=== PATIENT | female | born 1995 | race Caucasian/White ===

== ENCOUNTER → 2018-12-17 | Outpatient (CLI) | payer OTHER ==
--- NOTE | 2018-12-20 08:09 | USB ---
Reason for exam: clinical finding. History: Taking hormonal contraceptives for 4 years. Indicated problem(s): lump or thickening in the right breast. Physical Findings: Nurse Summary: 2cm firm lump right breast 7 o'clock (nurse TM). US Breast RT Right complete breast ultrasound includes all four quadrants, the retroareolar region and axilla. Finding demonstrates no cystic or solid lesion seen. Rounded area of dense breast tissue, stable to the patient x 7 years. Other areas of dense breast tissue are seen throughout. These results were verbally communicated with the patient and result sheet given to the patient on 12/17/18. ASSESSMENT: Benign, BI-RAD 2 RECOMMENDATION: Routine screening mammogram of both breasts at age 42. (or sooner if clinically indicated) Manage patient on a clinical basis. If clinical growth biopsy could be considered.
== END | disposition home or self-care (01) ==
LOC: RADUSWWP 14:44
PROVIDERS: ATTEND Obstetrics & Gynecology
DX: N63.10 Unspecified lump in the right breast, unspecified quadrant (principal)

== ENCOUNTER → 2020-01-17 | Outpatient (CLI) | payer OTHER ==
[2020-01-17 14:43] LABS: T4, Free (Free Thyroxine) 0.91 ng/dL (0.78-2.19)
--- NOTE | 2020-01-17 15:58 | US ---
EXAMINATION TYPE: US pelvic complete DATE OF EXAM: 01/17/2020 COMPARISON: CT 2009 CLINICAL HISTORY: N91.2 AMENORRHEA. Patient stated since menarche age 13 has had irregular menstrual cycles until placed on oral contraceptives; control was discontinued and September 2019 was l ast regular menstrual cycle. Patient stated has vaginal spotting now x 2 days. Patient stated is not . TECHNIQUE: Transabdominal (TA). Transabdominal sonographic images of the pelvis were acquired. Date of LMP: 01/16/2020 EXAM MEASUREMENTS: Uterus: 7.3 x 3.7 x 2.8 cm Endometrial Stripe: 0.6 cm Right Ovary: 3.4 x 2.7 x 2.1 cm Left Ovary: 3.2 x 3.87 x 2.1 cm 1. Uterus: Anteverted 2. Endometrium: appearance is wnl 3. Right Ovary: multiple small follicles 4. Left Ovary: multiple small follicles color flow is seen within bilateral ovary 5. Bilateral Adnexa: wnl 6. Posterior cul-de-sac: wnl Grayscale and color Doppler imaging performed, color flow noted to the left ovary, less color flow no rebeca to the right ovary IMPRESSION: Uterus size as described, transabdominal scanning only.
== END | disposition home or self-care (01) ==
LOC: RADUSWWP 13:28
PROVIDERS: ATTEND Obstetrics & Gynecology
DX: N91.2 Amenorrhea, unspecified (principal)
CPT/HCPCS: 36415; 76856; 84439; 84443

== ENCOUNTER → 2020-02-13 | Outpatient (CLI) | payer OTHER ==
[2020-02-13 11:03] LABS: DHEA Sulfate 190.6 ug/dL (26.0-430.0)
[2020-02-13 11:05] LABS: Insulin Level 15.3 mIU/mL (3.0-25.0)
[2020-02-13 12:07] LABS: Estradiol 45.7 pg/mL; Luteinizing Hormone 6.5 mIU/mL
[2020-02-13 12:08] LABS: Follicle Stimulating Hormone 8.5 mIU/mL
== END | disposition home or self-care (01) ==
LOC: LABWHC1 07:11
PROVIDERS: ATTEND Obstetrics & Gynecology
DX: N91.5 Oligomenorrhea, unspecified (principal)
CPT/HCPCS: 36415; 82627; 82670; 82947; 83001; 83002; 83525; 84402

== ENCOUNTER → 2022-11-14 | Outpatient (CLI) | payer OTHER ==
[2022-11-14 15:39] LABS: Basophils # (A) 0.02 X 10*3/uL (0.00-0.10); Basophils % (A) 0.4 %; Eosinophils # (A) 0.12 X 10*3/uL (0.04-0.35); Eosinophils % (A) 2.3 %; HCT 44.3 % (37.2-46.3); HGB 13.8 d/dL (12.0-15.0); Lymphocytes # (A) 1.79 X 10*3/uL (0.90-5.00); Lymphocytes % (A) 33.6 %; MCH 27.8 pg (27.0-32.0); MCHC 31.2 d/dL (32.0-37.0); MCV 89.3 FL (80.0-97.0); Mean Platelet Volume 10.1 FL (9.5-12.2); Monocytes # (A) 0.39 X 10*3/uL (0.20-1.00); Monocytes % (A) 7.3 %; NRBC Per 100 WBC 0 X 10*3/uL (0.00-0.01); Neutrophils # (A) 2.98 X 10*3/uL (1.80-7.70); Platelet Count 264 X 10*3/uL (140-440); RBC 4.96 X 10*6/uL (4.10-5.20); WBC 5.32 X 10*3/uL (4.50-10.00)
[2022-11-14 16:41] LABS: VLDL Calculation 10.82 mg/dL (5.00-40.00)
[2022-11-14 16:58] LABS: ALT 19 U/L (8-44); AST 16 U/L (13-35); Albumin 4.7 d/dL (3.8-4.9); Albumin/Globulin Ratio 2.35 Ratio (1.60-3.17); Alkaline Phosphatase 43 U/L (41-126); BUN/Creat Ratio 13.86 Ratio (12.00-20.00); Blood Urea Nitrogen 9.7 mg/dL (9.0-27.0); Calcium 9.5 mg/dL (8.7-10.3); Carbon Dioxide 23.7 mmol/L (21.6-31.8); Chloride 104 mmol/L (96-109); Chol/HDL Ratio 3.72 Ratio; Glucose 91 mg/dL (70-110); HCG,Quantitative Serum <3.0 mIU/mL (0.0-6.0); LDL Cholesterol,Calculated 128.9 mg/dL (0.0-131.0); Potassium 4.7 mmol/L (3.5-5.5); Sodium 140 mmol/L (135-145); Total Bilirubin 0.3 mg/dL (0.3-1.2); Total Protein 6.7 d/dL (6.2-8.2)
== END | disposition home or self-care (01) ==
LOC: LABWHC1 08:52
PROVIDERS: ATTEND Family Medicine
DX: E28.2 Polycystic ovarian syndrome (principal)
CPT/HCPCS: 36415; 80053; 80061; 82627; 83036; 84146; 84443; 84702; 85025

== ENCOUNTER 2024-07-03 14:55 | Inpatient (IN) | payer OTHER ==
[2024-07-03] MEDS ORDERED: CARBOPROST TROMETHAMINE 250 MCG/ML 1 ML AMP IM PRN (16:03)
[2024-07-03] MEDS ORDERED: TERBUTALINE 1 MG/ML VIAL SQ PRN (16:03)
[2024-07-03] MEDS ORDERED: METHYLERGONOVINE 0.2 MG/ML 1 ML AMP IM PRN (16:03)
[2024-07-03] MEDS ORDERED: LIDOCAINE 0.5% (PF) 5 MG/ML (50 ML SDV) SQ PRN (16:03)
[2024-07-03] MEDS ORDERED: OXYTOCIN 10 UNIT/ML 1 ML VIAL IM PRN (16:03)
[2024-07-03] MEDS ORDERED: TRANEXAMIC 1,000 MG/100ML-NACL 1,000 MG in EMPTY BAG 1 BAG IV PRN (16:03)
[2024-07-03] MEDS ORDERED: miSOPROStoL 200 MCG TAB RECTAL PRN (16:03)
[2024-07-03] MEDS ORDERED: miSOPROStoL 200 MCG TAB PO PRN (16:03)
[2024-07-03 16:38] LABS: Basophils % (A) 0 %; Eosinophils # (A) 0.1 k/uL (0-0.7); Eosinophils % (A) 1 %; HCT 36.2 % (34.0-46.0); HGB 11.3 gm/dL (11.4-16.0); Hypochromasia Slight; Lymphocytes # (A) 1.3 k/uL (1.0-4.8); Lymphocytes % (A) 18 %; MCH 27.3 pg (25.0-35.0); MCHC 31.3 g/dL (31.0-37.0); MCV 87.1 fL (80.0-100.0); Mean Platelet Volume 9.5; Monocytes # (A) 0.3 k/uL (0-1.0); Monocytes % (A) 4 %; Neutrophils # (A) 5.6 k/uL (1.3-7.7); Neutrophils % (A) 75 %; Platelet Count 221 k/uL (150-450); RBC 4.15 m/uL (3.80-5.40); WBC 7.5 k/uL (3.8-10.6)
[2024-07-03] MEDS: LACTATED RINGERS 1,000 ML IV SCH (17:00)
--- NOTE | 2024-07-03 20:18 | P.HPOB ---
History of Present Illness H&P Date: 07/03/24 Chief Complaint: 40 and 1 sevenths weeks, spontaneous rupture of membranes Patient is a 28-year-old 1 para 0 admitted at 40 and 3 sevenths weeks as established by 6-week ultrasound. She is admitted with documented spontaneous rupture of membranes for clear fluid. On labor and delivery, all signs are reassuring with a category 1 heart rate tracing. Contractions are irregular at this time. Her has been entirely uncomplicated and group B strep status is negative. Obstetrical history: 1 para 0 with current statistics listed in history of present illness. EDC of 06/30/2024 was established by 6-week ultrasound. Laboratory workup demonstrates a blood type of O+ with a negative antibody screen. Rubella status is immune. The remainder of the laboratory workup is within normal limits. 1 hour Glucola was initially elevated but followed by a normal 3-hour glucose tolerance test. Group B strep status is negative. Gynecologic history: Unremarkable with no history of any infections to include STDs. Review of Systems Review of systems is confined to history of present illness. Past Medical History Past Medical History: No Reported History History of Any Multi-Drug Resistant Organisms: None Reported Past Surgical History: Adenoidectomy, Ear Surgery, Tonsillectomy Additional Past Surgical History / Comment(s): lip surgery Past Anesthesia/Blood Transfusion Reactions: No Reported Reaction Past Psychological History: No Psychological Hx Reported Smoking Status: Never smoker Past Alcohol Use History: None Reported Past Drug Use History: None Reported - Past Family History Father Family Medical History: Diabetes Mellitus, Hypertension Medications and Allergies Home Medications Medication Instructions Recorded Confirmed Type Aspirin 81 mg PO DAILY 05/03/24 07/03/24 History Vit No.179/Iron/Folic 1 tablet PO DAILY 05/03/24 07/03/24 History [ Tablet] metFORMIN HCL 1,000 mg PO DAILY 05/03/24 07/03/24 History valACYclovir HCL [Valtrex] 500 mg PO DAILY 07/03/24 07/03/24 History Allergies Allergy/AdvReac Type Severity Reaction Status Date / Time No Known Allergies Allergy Verified 07/03/24 15:09 Exam Vital Signs Temp Pulse Resp BP Pulse Ox 07/03/24 15:31 98.7 F 113 H 18 136/90 98 07/03/24 15:08 98.7 F 113 H 18 136/90 98 07/03/24 15:00 98.7 F 113 H 18 136/90 98 Intake and Output 07/03/24 07/03/24 07/03/24 06:59 14:59 22:59 Other: Weight 90.718 kg In general, this is a well-developed, well-nourished white female in no acute distress. Her heart has a regular rhythm and rate without murmur. Her lungs are clear to auscultation bilaterally in all madrigal. Her abdomen is gravid, nondistended, has normal active bowel sounds, soft, nontender, and without any palpable masses aside from uterine fundus. Her extremities are without any cyanosis, clubbing, or significant edema and are nontender to palpation bilaterally. Digital cervical examination has demonstrated her cervix to be approximately 1+ centimeters dilated, 60% effaced, with the vertex and presentation at -2-3 station. Spontaneous rupture of membranes is documented. Results Result Diagrams: 07/03/24 16:10 Abnormal Lab Results - Last 24 Hours (Table) 07/03/24 Range/Units 16:10 Hgb 11.3 L (11.4-16.0) gm/dL RDW 16.0 H (11.5-15.5) % Assessment and Plan (1) Post-dates Current Visit: Yes Status: Acute Code(s): O48.0 - POST-TERM SNOMED Code(s): 62349234 (2) Spontaneous rupture of membranes Current Visit: Yes Status: Acute Code(s): AGW2978 - SNOMED Code(s): 619983312 Plan: The patient is admitted for active management of labor. She will have close maternal and surveillance and expectant management will be practiced. She is a good candidate for either IV or epidural analgesia, which she may choose. Should she make no significant change or show evidence of active labor over the next several hours, Pitocin augmentation will be added.
[2024-07-04] MEDS: BUTORPHANOL 1 MG/ML 1 ML VIAL IV PRN (01:11)
[2024-07-04] MEDS: OXYTOCIN 30 UNITS/500 ML NS 30 UNIT in SALINE 1 500ML.BAG IV SCH (04:44)
[2024-07-04] MEDS ORDERED: ROPIVACAINE 5 MG/ML 30 ML VIAL ONE (05:50)
[2024-07-04] MEDS ORDERED: fentaNYL (PF) 50 MCG/ML 5 ML AMP ONE (05:50)
[2024-07-04] MEDS ORDERED: SODIUM CHLORIDE 0.9% 250 ML BAG ONE (05:50)
[2024-07-04] MEDS ORDERED: METHYLERGONOVINE 0.2 MG/ML 1 ML AMP IM PRN (08:13)
[2024-07-04] MEDS ORDERED: miSOPROStoL 200 MCG TAB PO PRN (08:13)
[2024-07-04] MEDS ORDERED: CARBOPROST TROMETHAMINE 250 MCG/ML 1 ML AMP IM PRN (08:13)
[2024-07-04] MEDS ORDERED: TRANEXAMIC 1,000 MG/100ML-NACL 1,000 MG in EMPTY BAG 1 BAG IV PRN (08:13)
[2024-07-04] MEDS ORDERED: OXYTOCIN 10 UNIT/ML 1 ML VIAL IM PRN (08:13)
[2024-07-04] MEDS: CITRIC ACID-SODIUM CITRATE 15 ML CUP PO ONE (08:21)
[2024-07-04] MEDS ORDERED: ONDANSETRON 4 MG/2 ML VIAL ONE (08:30)
[2024-07-04] MEDS ORDERED: LIDOCAINE 2% (PF) 20 MG/ML 5 ML VIAL ONE (08:30)
[2024-07-04] MEDS ORDERED: fentaNYL (PF) 50 MCG/ML 2 ML AMP ONE (08:30)
[2024-07-04] MEDS ORDERED: MORPHINE SULFATE (PF) 0.3 MG/0.3 ML SYR ONE (08:30)
[2024-07-04] MEDS: PRENATAL VIT-IRON-FOLIC ACID 1 EACH TABLET PO SCH (09:24)
[2024-07-04] MEDS ORDERED: ZOLPIDEM 5 MG TAB PO PRN (10:07)
[2024-07-04] MEDS ORDERED: METOCLOPRAMIDE 5 MG/ML 2 ML VIAL IVP PRN (10:07)
[2024-07-04] MEDS ORDERED: diphenhydrAMINE 50 MG/ML 1 ML VIAL IVP PRN ×2 (10:07)
[2024-07-04] MEDS ORDERED: ONDANSETRON 4 MG/2 ML VIAL IVP PRN (10:07)
[2024-07-04] MEDS ORDERED: diphenhydrAMINE 50 MG CAP PO PRN (10:07)
[2024-07-04] MEDS ORDERED: NALOXONE 0.4 MG/ML 1 ML VIAL IV PRN (10:07)
[2024-07-04] MEDS ORDERED: diphenhydrAMINE 25 MG CAP PO PRN (10:07)
[2024-07-04] MEDS: ACETAMINOPHEN IV (For NPO) 1,000 MG in EMPTY BAG 1 BAG IVPB ONE (11:02)
[2024-07-04] MEDS: IBUPROFEN 800 MG TAB PO SCH (14:54)
[2024-07-04] MEDS: LACTATED RINGERS 1,000 ML IV SCH (17:16)
[2024-07-04] MEDS: ACETAMINOPHEN TAB 500 MG TAB PO SCH (18:55)
[2024-07-04] MEDS: SENNOSIDES-DOCUSATE SODIUM 1 EACH TAB PO SCH (20:39)
[2024-07-05 07:36] LABS: Anisocytosis Slight; Basophils % (A) 0 %; Eosinophils # (A) 0.1 k/uL (0-0.7); Eosinophils % (A) 1 %; HCT 30.4 % (34.0-46.0); Hypochromasia Moderate; Lymphocytes # (A) 1.2 k/uL (1.0-4.8); Lymphocytes % (A) 16 %; MCH 27.4 pg (25.0-35.0); MCHC 30.7 g/dL (31.0-37.0); MCV 89.1 fL (80.0-100.0); Mean Platelet Volume 9.4; Monocytes # (A) 0.3 k/uL (0-1.0); Monocytes % (A) 4 %; Neutrophils # (A) 5.8 k/uL (1.3-7.7); Neutrophils % (A) 77 %; Platelet Count 196 k/uL (150-450); RBC 3.41 m/uL (3.80-5.40); WBC 7.5 k/uL (3.8-10.6)
[2024-07-05 07:40] LABS: HGB 9.3 gm/dL (11.4-16.0)
--- NOTE | 2024-07-05 08:18 | P.PN ---
Progress Note - Text Progress Note Date: 07/05/24 (0644) Anesthesia Postop day 1 Subjective: Status Post section with Duramorph. Patient seen and examined. Doing well without complaint. VAS 1 out of 10. No nausea or vomiting. Mild pruritus tolerable.. Denies fever. Gross lower extremity strength intact. Without apparent anesthetic complications. Objective: Vital signs reviewed Heart: Regular Rate Lungs: Good chest excursion Abdomen: Appears nondistended Assessment: Status post section with Duramorph postop day 1 Plan: 1. Continue current care with your medical management. Anticipated end to the duration of the Duramorph around surgery time today. You may see increased pain needs around this time. 2. This note was dictated using [employer] software. Please be advised there is a potential for misspellings or errors in research and development specialist.
--- NOTE | 2024-07-05 08:24 | P.PNOBGPC ---
Subjective - Subjective Principal diagnosis: Postop day 1, primary Interval history: Patient is doing well this morning. She is ambulating and voiding without difficulty. She is tolerating a regular diet without vomiting. States her lochia is minimal. She is breast-feeding without difficulty. She denies concerns. Patient reports: Reports appetite normal, Reports voiding normally, Reports pain well controlled, Reports ambulating normally : doing well Objective - Vital Signs Latest vital signs: Vital Signs Temp Pulse Resp BP Pulse Ox 07/05/24 00:00 98.0 F 88 16 108/68 98 07/04/24 20:00 98.2 F 82 16 118/73 97 07/04/24 16:00 98.3 F 95 17 119/78 97 07/04/24 11:13 97.8 F 85 16 126/69 98 07/04/24 10:58 85 18 125/69 98 07/04/24 10:43 90 18 110/69 99 07/04/24 10:28 82 16 113/71 99 07/04/24 10:13 86 16 103/64 97 07/04/24 09:58 84 18 98/51 98 07/04/24 09:43 86 16 119/55 96 07/04/24 09:28 84 18 88/51 99 07/04/24 09:13 83 18 104/51 96 Intake and Output 07/04/24 07/05/24 07/05/24 22:59 06:59 14:59 Intake Total 200 Output Total 1550 Balance -1350 Intake: Oral 200 Output: Urine 1550 Uretheral (Bryant) 550 Other: # Voids 1 2 - Exam Extremities: Present: normal, edema Abdomen: Present: normal appearance, soft Incision: Present: normal, dry, intact Uterus: Present: normal, firm - Labs Labs: Abnormal Lab Results - Last 24 Hours (Table) 07/05/24 Range/Units 06:58 RBC 3.41 L (3.80-5.40) m/uL Hgb 9.3 L D (11.4-16.0) gm/dL Hct 30.4 L (34.0-46.0) % MCHC 30.7 L (31.0-37.0) g/dL RDW 16.0 H (11.5-15.5) % Assessment and Plan (1) Non-reassuring heart tones complicating , antepartum Current Visit: Yes Status: Acute Code(s): O36.8390 - MATERN CARE FOR ABNLT FETL HRT RATE OR RHYM, UNSP TRI, UNSP SNOMED Code(s): 861083564 (2) Status post section Current Visit: Yes Status: Acute Code(s): Z98.891 - HISTORY OF UTERINE SCAR FROM PREVIOUS SURGERY SNOMED Code(s): 113360938 (3) Post-dates Current Visit: Yes Status: Acute Code(s): O48.0 - POST-TERM SNOMED Code(s): 06678992 (4) Spontaneous rupture of membranes Current Visit: Yes Status: Acute Code(s): [id number] - SNOMED Code(s): 776055159 Plan: Patient is doing well postoperatively, continue routine postoperative care and anticipate discharge home tomorrow.
[2024-07-06 00:38] VITALS: RESP 16
[2024-07-06 08:16] VITALS: BP 148/82; PULSE 102; TEMP 98
--- NOTE | 2024-07-11 15:34 | P.OP ---
Date of Procedure: 07/04/24 Preoperative Diagnosis: IUP at 40 4/7 weeks, nonreassuring heart tones Postoperative Diagnosis: Same Procedure(s) Performed: Primary low-transverse section Anesthesia: epidural Surgeon: Sindy Choudhary [employer] Analyst #1: Karli Mcbride Estimated Blood Loss (ml): 517 IV fluids (ml): 500 Urine output (ml): 500 Pathology: none sent Condition: stable Disposition: observation Indications for Procedure: Nonreassuring heart tones Operative Findings: Viable male infant, 9 pounds 2 ounces Description of Procedure: The patient was prepped and draped in the usual fashion after epidural anesthesia was noted to be adequate. A Pfannenstiel incision was made and extended of the abdominal cavity without difficulty. The bladder peritoneum was elevated and incised and reflected distally. A 2 cm incision was made in the transverse plane of the lower uterine segment to enter the uterus at which time clear fluid was noted. The incision was extended laterally the head was encountered within the field and delivered up and through the incision where the nose and mouth were thoroughly suctioned. Remainder of the was delivered onto the surgical field where the cord was doubly clamped, cut, and the was passed for resuscitative measures with weight and Apgars as noted above. A segment of cord was then doubly clamped, cut, and set aside should cord gases become necessary. The placenta was delivered manually, intact, and was grossly normal with a grossly normal three-vessel cord. The uterus was exteriorized and the interior cavity of the uterus swept of any remaining placental and membranous fragments with a laparotomy sponge. The margins of the incision were grasped with Allis clamps and the incision closed in 2 layers. First layer was a running locking layer of 0 Vicryl from margin to margin followed by a second layer of imbricating 0 Vicryl from margin to margin. Any small points of bleeding were then made hemostatic with the Bovie. Once hemostasis was achieved, the posterior cul-de-sac was suctioned with a guard and the uterine and ovarian findings are as noted above. The uterus was replaced within the abdominal cavity and the gutters swept of any remaining blood fluid or clot. The incision was again reexamined and hemostasis was noted to be excellent. Any small point of bleeding were made hemostatic with the Bovie. Once hemostasis was achieved the parietal peritoneum was loosely reapproximated. The layer of muscles were examined and made hemostatic with the Bovie. Attention was then turned to the fascia which was closed with 2 running stitches of 0 Vicryl proceeding from the lateral margins to the midpoint. The subcutaneous tissues were irrigated, made hemostatic with the Bovie, and reapproximated with a running stitch of 30 vicryl. The skin was reapproximated with 4-0 Vicryl. Estimated blood loss for the case was approximately 517 mL. All sponge instrument and needle counts are correct. There were no complications. The patient tolerated the procedure well and proceeded to the recovery room in stable condition. Both mother and infant are resting comfortably in recovery.
== END 2024-07-06 15:55 | disposition home or self-care (01) | DRG 788 ==
LOC: FBPOP 14:55 → 4FBP 15:28
PROVIDERS: ADMIT Obstetrics & Gynecology; ATTEND Obstetrics & Gynecology Obstetrics
PROC: 10D00Z1 Extraction of Products of Conception, Low, Open Approach (ICD-10-PCS; principal; 2024-07-04 08:30)
DX: O76 Abnormality in fetal heart rate and rhythm complicating labor and delivery (principal); L29.9 Pruritus, unspecified; O48.0 Post-term pregnancy; O99.73 Diseases of the skin and subcutaneous tissue complicating the puerperium; O42.92 Full-term premature rupture of membranes, unspecified as to length of time between rupture and onset of labor; Z37.0 Single live birth; Z79.84 Long term (current) use of oral hypoglycemic drugs; Z79.82 Long term (current) use of aspirin; Z3A.40 40 weeks gestation of pregnancy
CPT/HCPCS: 59025; 85025; 86850; 86900; 86901; 99213